=== PATIENT | female | born 1935 | race Caucasian/White ===

== ENCOUNTER 2017-07-11 18:17 | Emergency (ER) | payer MEDICARE ==
[~2017-07-11] VITALS: Ht 162.6 cm; Wt 68.0 kg
[~2017-07-11 18:17] MED LIST: ARICEPT5 MG PO; ASPIRIN81 MG; B-12500 MCG; BENTYL10 MG; COUMADIN2 MG PO; CRANBERRY500 M1; DIGOXIN125 MCG PO; DILTIAZEM HCL60 MG PO; HYDROCODON-ACE1 EA11; IRON325 M1; LEVOTHROID100 MCG; LIPITOR40 MG; METOPROLOL TART50 MG PO; NIFEDICAL XL30 MG; PRILOSEC20 MG; SERTRALINE HCL100 MG; TAMBOCOR100 MG; VITAMIN C1000 M2; VITAMIN D1000 UNIT; VITAMIN E1000 UNI1; XANAX XR0.5 MG; ZETIA10 MG
[2017-07-11] MEDS ORDERED: HYDROCODONE/APAP 5MG-325MG TAB PO ONE (21:45)
--- NOTE | 2017-07-11 22:24 | Diagnostic Imaging Report ---
KNEE RIGHT THREE VIEWS Comparison: None Clinical history: Knee pain status post fall Findings: See impression Impression: 1. Transverse minimally displaced fracture of the patella. 2. Large joint effusion. 3. Severe lateral compartment osteoarthritis with [id number] apposition. Signed by: Dr Sana Freeman MD on 07/11/2017 10:21 PM
[2017-07-11] MEDS ORDERED: TYLENOL WITH C1 EACH PO (22:28)
== END 2017-07-11 22:46 | disposition home or self-care (01) ==
LOC: ER 18:17
DX: S82.031A Displaced transverse fracture of right patella, initial encounter for closed fracture (principal); M25.461 Effusion, right knee; M25.361 Other instability, right knee; W18.09XA Striking against other object with subsequent fall, initial encounter; Y93.01 Activity, walking, marching and hiking; Y92.481 Parking lot as the place of occurrence of the external cause
CPT/HCPCS: 99284

== ENCOUNTER 2020-06-21 10:28 | Emergency (ER) | payer MEDICARE ==
[~2020-06-21] VITALS: Ht 154.9 cm; Wt 57.2 kg
[~2020-06-21 10:28] MED LIST changes: +TYLENOL WITH C1 EACH PO
[2020-06-21] MEDS ORDERED: SPIRONOLACTONE25 MG PO (10:56)
[2020-06-21] MEDS ORDERED: PREDNISONE 20 MG TAB PO ONE (11:30)
[2020-06-21] MEDS ORDERED: PREDNISONE 20 MG TAB ONE (11:40)
[2020-06-21] MEDS ORDERED: PREDNISONE20 MG PO ×2 (11:46→12:09)
[2020-06-21 12:22] VITALS: BP 120/70
== END 2020-06-21 12:16 | disposition home or self-care (01) ==
LOC: FSED 10:38
DX: M25.532 Pain in left wrist (principal); M65.88 Other synovitis and tenosynovitis, other site; I48.91 Unspecified atrial fibrillation; I10 Essential (primary) hypertension; I50.9 Heart failure, unspecified; K21.9 Gastro-esophageal reflux disease without esophagitis; Z85.3 Personal history of malignant neoplasm of breast; Z85.42 Personal history of malignant neoplasm of other parts of uterus; Z95.810 Presence of automatic (implantable) cardiac defibrillator
CPT/HCPCS: 73110; 99283; J7512

== ENCOUNTER 2021-06-03 20:03 | Inpatient (IN) | payer MEDICARE ==
[~2021-06-03] VITALS: Ht 160 cm; Wt 73.0 kg
[~2021-06-03 20:03] MED LIST changes: +PREDNISONE20 MG PO; +SPIRONOLACTONE25 MG PO
[2021-06-03 20:54] LABS: BASOPHILS % 0.3 % (0.0-1.0); EOSINOPHILS # (AUTO) 0.1 (0.0-0.4); EOSINOPHILS % 0.4 % (0.0-6.0); HEMOGLOBIN 11.4 g/dL (12.0-16.0); LYMPHOCYTES % 8.8 % (18.0-39.1); MEAN CORPUSCULAR HEMOGLOBIN 27.7 pg (28-32); MEAN CORPUSCULAR HGB CONC 31.7 g/dL (31-35); MEAN CORPUSCULAR VOLUME 87.4 fL (81-99); MONOCYTES # (AUTO) 1.2 (0.2-0.8); MONOCYTES % 9.7 % (4.4-11.3); NEUTROPHILS # (AUTO) 9.5 (2.1-6.9); NEUTROPHILS % 80.3 % (38.7-80.0); PLATELET COUNT 338 x10e3/uL (140-360); RED BLOOD COUNT 4.12 x10e6/uL (3.6-5.1); RED CELL DISTRIBUTION WIDTH 15.2 % (11.7-14.4)
[2021-06-03 21:00] LABS: CLARITY,URINE SL CLOUDY (CLEAR); COLOR,URINE STRAW (YELLOW); KETONES,URINE TRACE (NEGATIVE); LEUKOCYTE ESTERASE ,URINE SMALL (NEGATIVE); NITRITE,URINE NEGATIVE (NEGATIVE); PROTEIN,URINE DIPSTICK TRACE (NEGATIVE); URINE UROBILINOGEN 0.2 mg/dL (0.2 - 1)
[2021-06-03 21:14] LABS: ALBUMIN 3.2 g/dL (3.5-5.0); ALBUMIN/GLOBULIN RATIO 0.8 (0.8-2.0); CALCIUM 9.2 mg/dL (8.4-10.2); CREATININE, SERUM 0.9 mg/dL (0.57-1.11)
[2021-06-03 21:18] LABS: AMORPHOUS SEDIMENT,URINE MODERATE (FEW); BACTERIA,URINE FEW /HPF; HYALINE CASTS 0-1 (0-1); WBC,URINE (MAN) 0-5 /HPF (0-5)
[2021-06-03] MEDS ORDERED: SODIUM CHLORIDE 0.9% 50ML 50 ML ONE ×2 (21:39→23:47)
[2021-06-03] MEDS ORDERED: IOPAMIDOL 370 MG/ML 200 ML INFUS..BTL INJ ONE (21:39)
[2021-06-03] MEDS ORDERED: PIPERACILLIN/TAZOBACTAM 3.375 GM VIAL ONE (23:47)
[2021-06-04] VITALS (7 sets, daily range): BP systolic 104–118; BP diastolic 62–77
[2021-06-04] MEDS ORDERED: PIPER-TAZ 3.375 GM 50 ML IV ONE
[2021-06-04] MEDS: SODIUM CHLORIDE 0.9% 1000ML 1,000 ML IV SCH ×2 (00:10→08:53)
[2021-06-04] MEDS: ONDANSETRON HCL INJ 2MG/ML 2ML 2 MG/ML VIAL IV PRN ×5 (04:25→23:52)
[2021-06-04] MEDS ORDERED: METOPROLOL TARTRATE INJ 1 MG/ML VIAL IV STA (05:10)
[2021-06-04] MEDS ORDERED: DIGOXIN INJ 0.25 MG/ML 2 ML AMP IV STA (05:10)
[2021-06-04] MEDS ORDERED: DILTIAZEM HCL 5 MG/ML 5 ML VIAL IV STA (05:10)
[2021-06-04 05:21] LABS: CREATINE KINASE MB 3.3 ng/mL (0-5.0)
[2021-06-04 05:51] LABS: BASOPHILS % 0.3 % (0.0-1.0); EOSINOPHILS # (AUTO) 0.1 (0.0-0.4); EOSINOPHILS % 0.5 % (0.0-6.0); HEMATOCRIT 34.5 % (34.2-44.1); HEMOGLOBIN 10.8 g/dL (12.0-16.0); LYMPHOCYTES % 8.8 % (18.0-39.1); MEAN CORPUSCULAR HEMOGLOBIN 27.3 pg (28-32); MEAN CORPUSCULAR HGB CONC 31.3 g/dL (31-35); MEAN CORPUSCULAR VOLUME 87.1 fL (81-99); MONOCYTES # (AUTO) 1.2 (0.2-0.8); NEUTROPHILS # (AUTO) 8.6 (2.1-6.9); NEUTROPHILS % 79.1 % (38.7-80.0); PLATELET COUNT 309 x10e3/uL (140-360); RED BLOOD COUNT 3.96 x10e6/uL (3.6-5.1); RED CELL DISTRIBUTION WIDTH 15.2 % (11.7-14.4)
[2021-06-04] MEDS ORDERED: PIPERACILLIN/TAZOBACTAM 3.375 GM in SODIUM CHLORIDE 0.9% 50ML 50 ML IV ONE (06:00)
[2021-06-04 06:24] LABS: ALBUMIN/GLOBULIN RATIO 0.8 (0.8-2.0); ANION GAP 15.4 mmol/L (8-16); CALCIUM 8.7 mg/dL (8.4-10.2); CREATININE, SERUM 0.75 mg/dL (0.57-1.11); POTASSIUM 4.4 mmol/L (3.5-5.1)
[2021-06-04 06:46] LABS: CREATINE KINASE MB 3.2 ng/mL (0-5.0)
[2021-06-04] MEDS: LACTATED RINGER'S 1,000 ML INJ SCH ×2 (10:20→21:15)
[2021-06-04] MEDS: PIPERACILLIN/TAZOBACTAM 3.375 GM in SODIUM CHLORIDE 0.9% 50ML 50 ML IV SCH ×2 (11:17→18:48)
[2021-06-04] MEDS ORDERED: PIPERACILLIN/TAZOBACTAM 3.375 GM in SODIUM CHLORIDE 0.9% 50ML 50 ML IV SCH (12:00)
[2021-06-04 13:47] LABS: INR 1.32; PROTHROMBIN TIME 17.4 seconds (11.9-14.5)
[2021-06-04] MEDS ORDERED: ACETAMINOPHEN 650 MG SUPP PR ONE (18:15)
[2021-06-04] MEDS ORDERED: DIGOXIN INJ 0.25 MG/ML 2 ML AMP IV ONE (18:15)
[2021-06-04] MEDS: FAMOTIDINE 20 MG/2 ML VIAL IV SCH (18:19)
[2021-06-04] MEDS: Morphine 4mg Syringe 4 MG/ML INJ IV PRN ×2 (19:43→23:52)
[2021-06-04] MEDS: CLINDAMYCIN 600MG / 50ML 50 ML IV SCH (20:20)
[2021-06-05] VITALS (13 sets, daily range): BP systolic 93–123; BP diastolic 48–82
[2021-06-05] MEDS: PIPERACILLIN/TAZOBACTAM 3.375 GM in SODIUM CHLORIDE 0.9% 50ML 50 ML IV SCH ×3 (02:51→22:45)
[2021-06-05] MEDS: CLINDAMYCIN 600MG / 50ML 50 ML IV SCH ×3 (05:20→23:00)
[2021-06-05 06:29] LABS: BASOPHILS % 0.3 % (0.0-1.0); EOSINOPHILS % 0.1 % (0.0-6.0); HEMATOCRIT 34.6 % (34.2-44.1); HEMOGLOBIN 10.6 g/dL (12.0-16.0); LYMPHOCYTES # (AUTO) 0.9 (1.0-3.2); LYMPHOCYTES % 9.6 % (18.0-39.1); MEAN CORPUSCULAR HEMOGLOBIN 27.3 pg (28-32); MEAN CORPUSCULAR HGB CONC 30.6 g/dL (31-35); MEAN CORPUSCULAR VOLUME 89.2 fL (81-99); MONOCYTES # (AUTO) 1.2 (0.2-0.8); MONOCYTES % 12.6 % (4.4-11.3); NEUTROPHILS # (AUTO) 7.6 (2.1-6.9); PLATELET COUNT 282 x10e3/uL (140-360); RED BLOOD COUNT 3.88 x10e6/uL (3.6-5.1); RED CELL DISTRIBUTION WIDTH 15.5 % (11.7-14.4)
[2021-06-05] MEDS: LACTATED RINGER'S 1,000 ML INJ SCH ×3 (06:31→22:45)
[2021-06-05 06:36] LABS: ANION GAP 16.5 mmol/L (8-16); CALCIUM 8.7 mg/dL (8.4-10.2); CHOL/HDL RATIO 5.4 (3.0-3.6); CREATININE, SERUM 0.84 mg/dL (0.57-1.11); POTASSIUM 4.5 mmol/L (3.5-5.1)
[2021-06-05] MEDS: FAMOTIDINE 20 MG/2 ML VIAL IV SCH (08:31)
[2021-06-05] MEDS: METOPROLOL TARTRATE INJ 1 MG/ML VIAL IV SCH ×3 (11:45→19:10)
[2021-06-05] MEDS ORDERED: FENTANYL CITRATE/PF 100MCG/2 ML INJ ONE (13:00)
[2021-06-05] MEDS ORDERED: MIDAZOLAM HCL 2 MG/2 ML VIAL ONE (13:00)
[2021-06-05] MEDS ORDERED: HEPARIN SOD/SOD CHLORIDE 1,000 ML ONE (13:23)
[2021-06-05] MEDS ORDERED: NOREPINEPHRINE ONE (13:42)
[2021-06-05] MEDS ORDERED: SODIUM CHLORIDE 0.9% 250ML 0 ML ONE (13:43)
[2021-06-05] MEDS ORDERED: LIDOCAINE HCL 2% LOCAL INJ 5 ML SDV VIAL INJ ONE (13:58)
[2021-06-05] MEDS ORDERED: GLYCOPYRROLATE INJ 0.2 MG/ML VIAL ONE (13:58)
[2021-06-05] MEDS ORDERED: METOPROLOL TARTRATE INJ 1 MG/ML VIAL ONE (13:58)
[2021-06-05] MEDS ORDERED: DEXAMETHASONE SOD PHOS INJ 4 MG/ML SDV ONE (13:58)
[2021-06-05] MEDS ORDERED: SEVOFLURANE INHAL SOLN 250 ML PEN BTL ONE (13:58)
[2021-06-05] MEDS ORDERED: ONDANSETRON HCL INJ 2MG/ML 2ML 2 MG/ML VIAL ONE (13:58)
[2021-06-05] MEDS ORDERED: ROCURONIUM BROMIDE 10 MG/ML 5ML VIAL IV ONE (13:58)
[2021-06-05] MEDS ORDERED: PHENYLEPHRINE HCL 1% 10 MG/ML VIAL ONE (13:58)
[2021-06-05] MEDS ORDERED: POVIDONE IODINE 0.05% 0.05 % ML PO ONE (13:58)
[2021-06-05] MEDS ORDERED: NEOSTIGMINE 1 MG/ML 10ML VIAL ONE (13:58)
[2021-06-05] MEDS ORDERED: PROPOFOL IV EMULSION 10 MG/ML 20 ML VIAL ONE (13:58)
[2021-06-05] MEDS ORDERED: ESMOLOL HCL 100MG/10ML 10 MG/ML VIAL ONE (13:58)
[2021-06-05] MEDS ORDERED: ACETAMINOPHEN 1000 MG/100 ML 100 ML IV ONE (15:43)
[2021-06-05] MEDS ORDERED: HYDROMORPHONE 1MG/1ML INJ ONE (15:43)
[2021-06-05] MEDS ORDERED: SUGAMMADEX SODIUM 200 MG/2 ML VIAL IV ONE (16:30)
[2021-06-05] MEDS ORDERED: ACETAMINOPHEN 1000 MG/100 ML IV PRN ×4 (16:45→18:00)
[2021-06-05] MEDS ORDERED: HYDROMORPHONE 1MG/1ML INJ IV PRN ×3 (16:45)
[2021-06-05] MEDS: HYDROMORPHONE 1MG/1ML INJ IV PRN (19:10)
[2021-06-06] VITALS (20 sets, daily range): BP systolic 90–107; BP diastolic 45–57
[2021-06-06] MEDS: METOPROLOL TARTRATE INJ 1 MG/ML VIAL IV SCH ×4 (00:05→18:24)
[2021-06-06] MEDS: HYDROMORPHONE 1MG/1ML INJ IV PRN ×4 (00:05→21:05)
[2021-06-06] MEDS: PIPERACILLIN/TAZOBACTAM 3.375 GM in SODIUM CHLORIDE 0.9% 50ML 50 ML IV SCH ×3 (04:38→19:00)
[2021-06-06] MEDS: LACTATED RINGER'S 1,000 ML INJ SCH ×3 (04:38→20:44)
[2021-06-06] MEDS: CLINDAMYCIN 600MG / 50ML 50 ML IV SCH ×3 (05:05→21:57)
[2021-06-06] MEDS: ONDANSETRON HCL INJ 2MG/ML 2ML 2 MG/ML VIAL IV PRN ×3 (06:10→21:05)
[2021-06-06 06:33] LABS: BASOPHILS # (AUTO) 0.1 (0.0-0.1); BASOPHILS % 0.3 % (0.0-1.0); HEMATOCRIT 33.3 % (34.2-44.1); HEMOGLOBIN 10.6 g/dL (12.0-16.0); LYMPHOCYTES # (AUTO) 0.8 (1.0-3.2); LYMPHOCYTES % 4.2 % (18.0-39.1); MEAN CORPUSCULAR HEMOGLOBIN 27.6 pg (28-32); MEAN CORPUSCULAR HGB CONC 31.8 g/dL (31-35); MEAN CORPUSCULAR VOLUME 86.7 fL (81-99); MONOCYTES # (AUTO) 1.3 (0.2-0.8); MONOCYTES % 6.4 % (4.4-11.3); NEUTROPHILS # (AUTO) 17.6 (2.1-6.9); NEUTROPHILS % 88.4 % (38.7-80.0); PLATELET COUNT 363 x10e3/uL (140-360); RED BLOOD COUNT 3.84 x10e6/uL (3.6-5.1); RED CELL DISTRIBUTION WIDTH 15.8 % (11.7-14.4)
[2021-06-06 08:23] LABS: ALBUMIN 2.4 g/dL (3.5-5.0); ALBUMIN/GLOBULIN RATIO 0.7 (0.8-2.0); ANION GAP 17.9 mmol/L (8-16); CALCIUM 8.6 mg/dL (8.4-10.2); CREATININE, SERUM 0.99 mg/dL (0.57-1.11); POTASSIUM 4.9 mmol/L (3.5-5.1)
[2021-06-07] VITALS (18 sets, daily range): BP systolic 75–158; BP diastolic 47–95
[2021-06-07] MEDS: PIPERACILLIN/TAZOBACTAM 3.375 GM in SODIUM CHLORIDE 0.9% 50ML 50 ML IV SCH ×3 (02:14→20:21)
[2021-06-07] MEDS: ONDANSETRON HCL INJ 2MG/ML 2ML 2 MG/ML VIAL IV PRN ×2 (04:47→21:56)
[2021-06-07] MEDS: LACTATED RINGER'S 1,000 ML INJ SCH (05:00)
[2021-06-07] MEDS: CLINDAMYCIN 600MG / 50ML 50 ML IV SCH ×3 (05:12→21:18)
[2021-06-07] MEDS: METOPROLOL TARTRATE INJ 1 MG/ML VIAL IV SCH ×2 (05:16)
[2021-06-07] MEDS ORDERED: LACTATED RINGER'S 500 ML IV ONE ×2 (05:30→06:10)
[2021-06-07 05:56] LABS: BASOPHILS % 0.2 % (0.0-1.0); HEMATOCRIT 33.4 % (34.2-44.1); HEMOGLOBIN 10.4 g/dL (12.0-16.0); LYMPHOCYTES # (AUTO) 0.9 (1.0-3.2); LYMPHOCYTES % 5.7 % (18.0-39.1); MEAN CORPUSCULAR HEMOGLOBIN 27.3 pg (28-32); MEAN CORPUSCULAR HGB CONC 31.1 g/dL (31-35); MEAN CORPUSCULAR VOLUME 87.7 fL (81-99); MONOCYTES # (AUTO) 1.5 (0.2-0.8); MONOCYTES % 9.3 % (4.4-11.3); NEUTROPHILS # (AUTO) 13.4 (2.1-6.9); NEUTROPHILS % 83.6 % (38.7-80.0); PLATELET COUNT 424 x10e3/uL (140-360); RED BLOOD COUNT 3.81 x10e6/uL (3.6-5.1); RED CELL DISTRIBUTION WIDTH 16.4 % (11.7-14.4)
[2021-06-07 06:16] LABS: ALBUMIN 2.4 g/dL (3.5-5.0); ALBUMIN/GLOBULIN RATIO 0.7 (0.8-2.0); ANION GAP 21.2 mmol/L (8-16); CALCIUM 8.4 mg/dL (8.4-10.2); CREATININE, SERUM 2.1 mg/dL (0.57-1.11); POTASSIUM 5.2 mmol/L (3.5-5.1)
[2021-06-07] MEDS ORDERED: DEXTROSE 5%/0.9% SOD CHL 1,000 ML IV SCH (07:15)
[2021-06-07] MEDS ORDERED: ALBUMIN 25% 12.5GM 0.25 GM/ML BTL IV ONE (08:45)
[2021-06-07] MEDS ORDERED: ALBUMIN 25% 12.5GM 50ML 50 ML IV ONE (08:56)
[2021-06-07] MEDS ORDERED: CLOPIDOGREL BISULFATE 75 MG TAB PO NR (10:00)
[2021-06-07] MEDS ORDERED: ASPIRIN 325 MG TAB PO NR (10:00)
[2021-06-07] MEDS: SODIUM BICARBONATE 8.4% 150 ML in STERILE WATER IV SOLN 1,000 ML IV SCH ×2 (10:10→20:21)
[2021-06-07] MEDS ORDERED: LIDOCAINE HCL 2% LOCAL 20 ML VIAL ONE (10:36)
[2021-06-07] MEDS ORDERED: HEPARIN SOD/SOD CHLORIDE 2,000 ML ONE (10:37)
[2021-06-07] MEDS ORDERED: IOPAMIDOL 370 MG/ML 200 ML INFUS..BTL INJ ONE ×2 (10:37→11:49)
[2021-06-07] MEDS ORDERED: HEPARIN SOD (PORCINE) 1000 UNIT/ML 30ML ONE (10:38)
[2021-06-07] MEDS ORDERED: SODIUM CHLORIDE 0.9% 1000ML 1,000 ML ONE ×2 (10:38→11:10)
[2021-06-07] MEDS ORDERED: NITROGLYCERIN/D5W 200 MCG/ML 250 ML ONE (10:38)
[2021-06-07] MEDS ORDERED: FENTANYL CITRATE/PF 100MCG/2 ML INJ ONE (10:38)
[2021-06-07] MEDS ORDERED: MIDAZOLAM HCL 2 MG/2 ML VIAL ONE (10:38)
[2021-06-07] MEDS ORDERED: BIVALRIUDIN 250 MG/VIAL VIAL IV ONE (11:12)
[2021-06-07] MEDS ORDERED: SODIUM CHLORIDE 0.9% 50ML 50 ML ONE (11:12)
[2021-06-07] MEDS: VASOPRESSIN 60 UNIT in DEXTROSE 5% 50ML 57 ML IV SCH (20:21)
[2021-06-07 20:26] LABS: ALANINE AMINOTRANSFERASE 2518 IU/L (0-55); ALBUMIN 2.2 g/dL (3.5-5.0); ALBUMIN/GLOBULIN RATIO 0.8 (0.8-2.0); ALKALINE PHOSPHATASE 59 IU/L (40-150); ANION GAP 18.6 mmol/L (8-16); BLOOD UREA NITROGEN 54 mg/dL (7-26); BUN/CREATININE RATIO 22 (6-25); CALCIUM 7.7 mg/dL (8.4-10.2); CARBON DIOXIDE 21 mmol/L (22-29); CHLORIDE 104 mmol/L (98-107); CREATININE, SERUM 2.42 mg/dL (0.57-1.11); EST GLOMERULAR FILTRATION RATE 19 ML/MIN (60-); GLUCOSE 153 mg/dL (74-118); POTASSIUM 4.6 mmol/L (3.5-5.1); SODIUM 139 mmol/L (136-145)
[2021-06-07] MEDS ORDERED: ATORVASTATIN 20 MG TAB PO SCH (21:00)
[2021-06-08] VITALS (25 sets, daily range): BP systolic 87–166; BP diastolic 34–94
[2021-06-08] MEDS: ONDANSETRON HCL INJ 2MG/ML 2ML 2 MG/ML VIAL IV PRN (02:50)
[2021-06-08 06:11] LABS: BASOPHILS % 0.1 % (0.0-1.0); HEMATOCRIT 28.4 % (34.2-44.1); HEMOGLOBIN 8.9 g/dL (12.0-16.0); LYMPHOCYTES # (AUTO) 0.8 (1.0-3.2); LYMPHOCYTES % 5.2 % (18.0-39.1); MEAN CORPUSCULAR HEMOGLOBIN 27.4 pg (28-32); MEAN CORPUSCULAR HGB CONC 31.3 g/dL (31-35); MEAN CORPUSCULAR VOLUME 87.4 fL (81-99); MONOCYTES # (AUTO) 0.8 (0.2-0.8); MONOCYTES % 5.9 % (4.4-11.3); NEUTROPHILS # (AUTO) 12.6 (2.1-6.9); NEUTROPHILS % 87.5 % (38.7-80.0); PLATELET COUNT 277 x10e3/uL (140-360); RED BLOOD COUNT 3.25 x10e6/uL (3.6-5.1); RED CELL DISTRIBUTION WIDTH 16.7 % (11.7-14.4)
[2021-06-08] MEDS: CLINDAMYCIN 600MG / 50ML 50 ML IV SCH ×3 (06:16→22:00)
[2021-06-08 06:32] LABS: ALBUMIN 2.3 g/dL (3.5-5.0); ALBUMIN/GLOBULIN RATIO 0.8 (0.8-2.0); ANION GAP 20.4 mmol/L (8-16); CALCIUM 7.3 mg/dL (8.4-10.2); CREATININE, SERUM 2.63 mg/dL (0.57-1.11); POTASSIUM 4.4 mmol/L (3.5-5.1)
[2021-06-08] MEDS ORDERED: PROMETHAZINE 12.5MG/ NACL 0.9% 12.5 MG/50 ML BAG IV ONE (06:50)
[2021-06-08 08:37] LABS: PROTHROMBIN TIME 93.8 seconds (11.9-14.5)
[2021-06-08 08:38] LABS: INR 10.98
[2021-06-08] MEDS ORDERED: CLOPIDOGREL BISULFATE 75 MG TAB PO SCH (09:00)
[2021-06-08] MEDS ORDERED: ASPIRIN 81 MG ENTERIC COATED PO SCH (09:00)
[2021-06-08] MEDS ORDERED: FUROSEMIDE INJ 10 MG/ML 4 ML VIAL IV SCH (09:00)
[2021-06-08] MEDS ORDERED: METOPROLOL TARTRATE INJ 1 MG/ML VIAL IV PRN (10:30)
[2021-06-08] MEDS ORDERED: DIGOXIN INJ 0.25 MG/ML 2 ML AMP IV ONE (10:45)
[2021-06-08] MEDS: PIPERACILLIN/TAZOBACTAM 3.375 GM in SODIUM CHLORIDE 0.9% 50ML 50 ML IV SCH ×2 (11:01→20:17)
[2021-06-08] MEDS: METOPROLOL TARTRATE INJ 1 MG/ML VIAL IV PRN ×2 (11:49→14:45)
[2021-06-08] MEDS ORDERED: BUMETANIDE INJ 0.25MG/ML 4ML VIAL IV ONE (14:45)
[2021-06-08] MEDS: BUMETANIDE 10 MG in SODIUM CHLORIDE 0.9% 100 ML 60 ML IV SCH (15:13)
[2021-06-08] MEDS ORDERED: ZIPRASIDONE 20 MG VIAL IM STA (16:27)
[2021-06-08] MEDS ORDERED: ALBUMIN 25% 25GM 100ML 0.25 GM/ML BTL IV ONE (17:30)
[2021-06-08] MEDS: VASOPRESSIN 60 UNIT in DEXTROSE 5% 50ML 57 ML IV SCH (18:45)
[2021-06-08] MEDS: SODIUM BICARBONATE 8.4% 150 ML in STERILE WATER IV SOLN 1,000 ML IV SCH (19:12)
[2021-06-08] MEDS ORDERED: ATORVASTATIN 40 MG TAB PO SCH (21:00)
[2021-06-09] MEDS: BUMETANIDE 10 MG in SODIUM CHLORIDE 0.9% 100 ML 60 ML IV SCH (01:30)
[2021-06-09] MEDS: CLINDAMYCIN 600MG / 50ML 50 ML IV SCH (05:40)
[2021-06-09 08:31] VITALS: BP 101/43
[2021-06-09 09:00] VITALS: BP 101/43
[2021-06-09] MEDS: HYDROMORPHONE 1MG/1ML INJ IV PRN ×3 (09:30→18:00)
[2021-06-09] MEDS: LORAZEPAM INJ 2 MG/ML VIAL IV PRN (18:00)
[2021-06-10] MEDS: HYDROMORPHONE 1MG/1ML INJ IV PRN ×4 (02:57→21:30)
[2021-06-10] MEDS: LORAZEPAM INJ 2 MG/ML VIAL IV PRN ×4 (05:37→14:42)
[2021-06-10 09:00] VITALS: BP 101/43
[2021-06-10] MEDS ORDERED: SODIUM CHLORIDE 0.9% 1000ML 1,000 ML ONE (10:39)
[2021-06-10] MEDS ORDERED: PHYTONADIONE 10 MG/ML AMP SQ STA (10:43)
[2021-06-10] MEDS ORDERED: LORAZEPAM INJ 2 MG/ML VIAL IV STA (10:45)
[2021-06-10] MEDS ORDERED: SODIUM CHLORIDE 0.9% 1000ML 1,000 ML IV SCH (10:45)
[2021-06-10] MEDS ORDERED: PHYTONADIONE 10MG/ML 1 ML ONE ×2 (10:59→11:06)
[2021-06-10 11:59] VITALS: BP 120/68
[2021-06-10] MEDS: PIPERACILLIN/TAZOBACTAM 3.375 GM in SODIUM CHLORIDE 0.9% 50ML 50 ML IV SCH ×2 (14:00→20:57)
[2021-06-10 14:36] LABS: BASOPHILS % 0.2 % (0.0-1.0); EOSINOPHILS % 0.1 % (0.0-6.0); HEMOGLOBIN 8.9 g/dL (12.0-16.0); LYMPHOCYTES # (AUTO) 0.9 (1.0-3.2); LYMPHOCYTES % 5.5 % (18.0-39.1); MEAN CORPUSCULAR HEMOGLOBIN 27.3 pg (28-32); MEAN CORPUSCULAR HGB CONC 30.7 g/dL (31-35); MONOCYTES # (AUTO) 1.7 (0.2-0.8); MONOCYTES % 10.4 % (4.4-11.3); NEUTROPHILS # (AUTO) 13.7 (2.1-6.9); NEUTROPHILS % 81.8 % (38.7-80.0); PLATELET COUNT 220 x10e3/uL (140-360); RED BLOOD COUNT 3.26 x10e6/uL (3.6-5.1); RED CELL DISTRIBUTION WIDTH 17.2 % (11.7-14.4)
[2021-06-10 16:22] VITALS: BP 109/47
[2021-06-10 20:19] VITALS: BP 119/79
[2021-06-10 21:00] VITALS: BP 119/79
[2021-06-11] VITALS (9 sets, daily range): BP systolic 100–130; BP diastolic 63–89
[2021-06-11] MEDS: PIPERACILLIN/TAZOBACTAM 3.375 GM in SODIUM CHLORIDE 0.9% 50ML 50 ML IV SCH (05:58)
[2021-06-11 06:13] LABS: BASOPHILS % 0.1 % (0.0-1.0); EOSINOPHILS # (AUTO) 0.2 (0.0-0.4); EOSINOPHILS % 1.5 % (0.0-6.0); HEMATOCRIT 28.7 % (34.2-44.1); HEMOGLOBIN 9.2 g/dL (12.0-16.0); LYMPHOCYTES # (AUTO) 0.6 (1.0-3.2); MEAN CORPUSCULAR HGB CONC 32.1 g/dL (31-35); MEAN CORPUSCULAR VOLUME 87.2 fL (81-99); MONOCYTES # (AUTO) 1.2 (0.2-0.8); NEUTROPHILS # (AUTO) 11.5 (2.1-6.9); NEUTROPHILS % 83.9 % (38.7-80.0); PLATELET COUNT 256 x10e3/uL (140-360); RED BLOOD COUNT 3.29 x10e6/uL (3.6-5.1); RED CELL DISTRIBUTION WIDTH 17.2 % (11.7-14.4)
[2021-06-11 06:23] LABS: ALBUMIN 2.6 g/dL (3.5-5.0); ALBUMIN/GLOBULIN RATIO 0.8 (0.8-2.0); ANION GAP 17.6 mmol/L (8-16); CALCIUM 7.4 mg/dL (8.4-10.2); CREATININE, SERUM 3.64 mg/dL (0.57-1.11); POTASSIUM 3.6 mmol/L (3.5-5.1)
[2021-06-11 07:33] LABS: INR 1.41; PROTHROMBIN TIME 18.3 seconds (11.9-14.5)
[2021-06-11] MEDS ORDERED: DEXTROSE 5%/0.225% SOD CHL 1,000 ML IV SCH (11:45)
[2021-06-11] MEDS: DEXTROSE 5%/0.225% SOD CHL 1,000 ML IV SCH (12:47)
[2021-06-11] MEDS: PIPERACILLIN/TAZOBACTAM 2.25 GM in SODIUM CHLORIDE 0.9% 50ML 50 ML IV SCH ×2 (14:00→20:54)
[2021-06-12] VITALS (7 sets, daily range): BP systolic 105–141; BP diastolic 67–81
[2021-06-12] MEDS: DEXTROSE 5%/0.225% SOD CHL 1,000 ML IV SCH (01:02)
[2021-06-12] MEDS: PIPERACILLIN/TAZOBACTAM 2.25 GM in SODIUM CHLORIDE 0.9% 50ML 50 ML IV SCH ×3 (05:16→21:40)
[2021-06-12 06:21] LABS: BASOPHILS % 0.2 % (0.0-1.0); HEMATOCRIT 30.5 % (34.2-44.1); HEMOGLOBIN 9.9 g/dL (12.0-16.0); LYMPHOCYTES # (AUTO) 0.4 (1.0-3.2); LYMPHOCYTES % 2.4 % (18.0-39.1); MEAN CORPUSCULAR HEMOGLOBIN 28.3 pg (28-32); MEAN CORPUSCULAR HGB CONC 32.5 g/dL (31-35); MEAN CORPUSCULAR VOLUME 87.1 fL (81-99); MONOCYTES # (AUTO) 1.2 (0.2-0.8); MONOCYTES % 8.3 % (4.4-11.3); NEUTROPHILS # (AUTO) 12.8 (2.1-6.9); NEUTROPHILS % 87.4 % (38.7-80.0); PLATELET COUNT 257 x10e3/uL (140-360); RED CELL DISTRIBUTION WIDTH 18.3 % (11.7-14.4)
[2021-06-12 06:58] LABS: INR 1.32; PROTHROMBIN TIME 17.3 seconds (11.9-14.5)
[2021-06-12 07:02] LABS: ALBUMIN 2.7 g/dL (3.5-5.0); ALBUMIN/GLOBULIN RATIO 0.8 (0.8-2.0); CALCIUM 7.3 mg/dL (8.4-10.2); CREATININE, SERUM 2.91 mg/dL (0.57-1.11)
[2021-06-12] MEDS ORDERED: D5.45%NS/KCL 20MEQ 1,000 ML IV SCH (15:00)
[2021-06-12] MEDS ORDERED: POTASSIUM CHLORIDE 20MEQ/100ML 100 ML IV STA (15:12)
[2021-06-12] MEDS: DEXTROSE 5% 1,000 ML IV SCH ×2 (15:15→23:04)
[2021-06-12] MEDS ORDERED: DEXTROSE 5% 1,000 ML IV ONE (15:15)
[2021-06-12] MEDS ORDERED: POTASSIUM CHLORIDE 20MEQ/100ML 200 ML IV ONE (15:45)
[2021-06-12] MEDS: ENOXAPARIN 30 MG/0.3 ML SYR SC SCH (16:42)
[2021-06-12] MEDS ORDERED: ENOXAPARIN SOD INJ 40 MG/0.4 ML SYR SC SCH (17:00)
[2021-06-13] VITALS (10 sets, daily range): BP systolic 118–147; BP diastolic 72–102
[2021-06-13] MEDS: PIPERACILLIN/TAZOBACTAM 2.25 GM in SODIUM CHLORIDE 0.9% 50ML 50 ML IV SCH ×3 (05:37→21:21)
[2021-06-13] MEDS: DEXTROSE 5% 1,000 ML IV SCH ×2 (06:35→14:30)
[2021-06-13 06:52] LABS: BASOPHILS % 0.2 % (0.0-1.0); HEMATOCRIT 33.5 % (34.2-44.1); HEMOGLOBIN 10.1 g/dL (12.0-16.0); LYMPHOCYTES # (AUTO) 0.4 (1.0-3.2); LYMPHOCYTES % 2.6 % (18.0-39.1); MEAN CORPUSCULAR HEMOGLOBIN 27.6 pg (28-32); MEAN CORPUSCULAR HGB CONC 30.1 g/dL (31-35); MEAN CORPUSCULAR VOLUME 91.5 fL (81-99); MONOCYTES # (AUTO) 1.5 (0.2-0.8); MONOCYTES % 10.1 % (4.4-11.3); NEUTROPHILS % 86.2 % (38.7-80.0); PLATELET COUNT 268 x10e3/uL (140-360); RED BLOOD COUNT 3.66 x10e6/uL (3.6-5.1); RED CELL DISTRIBUTION WIDTH 19.3 % (11.7-14.4)
[2021-06-13 07:26] LABS: ALBUMIN 2.8 g/dL (3.5-5.0); ALBUMIN/GLOBULIN RATIO 0.8 (0.8-2.0); ANION GAP 16.2 mmol/L (8-16); CALCIUM 7.6 mg/dL (8.4-10.2); CREATININE, SERUM 2.22 mg/dL (0.57-1.11); POTASSIUM 3.2 mmol/L (3.5-5.1)
[2021-06-13] MEDS ORDERED: POTASSIUM CHLORIDE 20MEQ/100ML 100 ML IV ONE ×3 (09:30→11:00)
[2021-06-13] MEDS ORDERED: BUMETANIDE INJ 0.25MG/ML 4ML VIAL IV ONE (15:00)
[2021-06-13] MEDS: ENOXAPARIN 30 MG/0.3 ML SYR SC SCH (16:58)
[2021-06-13] MEDS ORDERED: Morphine 2mg Syringe 2 MG/ML SYR IV PRN (17:00)
[2021-06-13] MEDS: METOPROLOL TARTRATE INJ 1 MG/ML VIAL IV PRN (20:36)
[2021-06-14] VITALS (9 sets, daily range): BP systolic 116–152; BP diastolic 85–102
[2021-06-14] MEDS: METOPROLOL TARTRATE INJ 1 MG/ML VIAL IV PRN ×2 (00:09→21:45)
[2021-06-14] MEDS: PIPERACILLIN/TAZOBACTAM 2.25 GM in SODIUM CHLORIDE 0.9% 50ML 50 ML IV SCH ×3 (05:44→22:55)
[2021-06-14] MEDS: DEXTROSE 5% 1,000 ML IV SCH ×2 (05:44→16:44)
[2021-06-14] MEDS ORDERED: CLOPIDOGREL BISULFATE 75 MG TAB PO ONE (14:30)
[2021-06-14] MEDS ORDERED: BUMETANIDE INJ 0.25MG/ML 4ML VIAL IV ONE (15:00)
[2021-06-14 15:27] LABS: ALBUMIN 2.8 g/dL (3.5-5.0); ALBUMIN/GLOBULIN RATIO 0.8 (0.8-2.0); ANION GAP 14.3 mmol/L (8-16); CALCIUM 7.4 mg/dL (8.4-10.2); CREATININE, SERUM 2.14 mg/dL (0.57-1.11); POTASSIUM 3.3 mmol/L (3.5-5.1)
[2021-06-14] MEDS: METOPROLOL TARTRATE 25 MG TAB PO SCH (16:44)
[2021-06-14] MEDS: ENOXAPARIN 30 MG/0.3 ML SYR SC SCH (16:44)
[2021-06-14] MEDS ORDERED: MAGNESIUM SULFATE 2GM/50ML 50 ML IV ONE (17:30)
[2021-06-14] MEDS ORDERED: SODIUM CHLORIDE 0.9% 50ML 50 ML ONE (18:01)
[2021-06-14] MEDS ORDERED: POTASSIUM CHLORIDE 10MEQ/100ML 200 ML IV ONE (19:30)
[2021-06-15] VITALS (8 sets, daily range): BP systolic 101–136; BP diastolic 64–106
[2021-06-15] MEDS: DEXTROSE 5% 1,000 ML IV SCH ×2 (04:00→13:51)
[2021-06-15] MEDS: PIPERACILLIN/TAZOBACTAM 2.25 GM in SODIUM CHLORIDE 0.9% 50ML 50 ML IV SCH (05:54)
[2021-06-15 06:37] LABS: BASOPHILS % 0.1 % (0.0-1.0); HEMATOCRIT 34.2 % (34.2-44.1); HEMOGLOBIN 10.2 g/dL (12.0-16.0); LYMPHOCYTES # (AUTO) 0.4 (1.0-3.2); MEAN CORPUSCULAR HEMOGLOBIN 27.9 pg (28-32); MEAN CORPUSCULAR HGB CONC 29.8 g/dL (31-35); MEAN CORPUSCULAR VOLUME 93.7 fL (81-99); MONOCYTES # (AUTO) 1.2 (0.2-0.8); MONOCYTES % 6.5 % (4.4-11.3); NEUTROPHILS % 90.4 % (38.7-80.0); PLATELET COUNT 222 x10e3/uL (140-360); RED BLOOD COUNT 3.65 x10e6/uL (3.6-5.1); RED CELL DISTRIBUTION WIDTH 20.4 % (11.7-14.4)
[2021-06-15 07:04] LABS: MAGNESIUM 2.1 MG/DL (1.3-2.1); PHOSPHORUS 4.2 MG/DL (2.3-4.7)
[2021-06-15 07:07] LABS: ALBUMIN 2.6 g/dL (3.5-5.0); ALBUMIN/GLOBULIN RATIO 0.7 (0.8-2.0); ANION GAP 12.3 mmol/L (8-16); CALCIUM 7.2 mg/dL (8.4-10.2); CREATININE, SERUM 2.02 mg/dL (0.57-1.11); POTASSIUM 3.3 mmol/L (3.5-5.1)
[2021-06-15] MEDS: METOPROLOL TARTRATE 25 MG TAB PO SCH ×2 (08:55→18:19)
[2021-06-15] MEDS: CLOPIDOGREL BISULFATE 75 MG TAB PO SCH (08:55)
[2021-06-15] MEDS ORDERED: POTASSIUM CHLORIDE 20MEQ/100ML 200 ML IV ONE ×2 (12:45→15:30)
[2021-06-15] MEDS: BUMETANIDE INJ 0.25MG/ML 4ML VIAL IV SCH ×2 (13:51→20:32)
[2021-06-15] MEDS ORDERED: METRONIDAZOLE 500MG/NS 100ML 100 ML IV SCH (14:00)
[2021-06-15] MEDS: METRONIDAZOLE 500 MG TAB PO SCH ×2 (15:49→21:17)
[2021-06-15] MEDS: CEFEPIME 1 GM in SODIUM CHLORIDE 0.9% 50ML 50 ML IV SCH (15:49)
[2021-06-15] MEDS: ENOXAPARIN 30 MG/0.3 ML SYR SC SCH (18:20)
[2021-06-16] VITALS (7 sets, daily range): BP systolic 100–125; BP diastolic 63–91
[2021-06-16] MEDS: DEXTROSE 5% 1,000 ML IV SCH ×3 (00:40→22:08)
[2021-06-16 05:04] LABS: BASOPHILS % 0.2 % (0.0-1.0); EOSINOPHILS # (AUTO) 0.1 (0.0-0.4); EOSINOPHILS % 0.3 % (0.0-6.0); HEMATOCRIT 33.8 % (34.2-44.1); HEMOGLOBIN 10.4 g/dL (12.0-16.0); LYMPHOCYTES # (AUTO) 0.5 (1.0-3.2); LYMPHOCYTES % 2.6 % (18.0-39.1); MEAN CORPUSCULAR HEMOGLOBIN 28.1 pg (28-32); MEAN CORPUSCULAR HGB CONC 30.8 g/dL (31-35); MEAN CORPUSCULAR VOLUME 91.4 fL (81-99); MONOCYTES # (AUTO) 1.1 (0.2-0.8); MONOCYTES % 5.7 % (4.4-11.3); NEUTROPHILS % 90.3 % (38.7-80.0); PLATELET COUNT 206 x10e3/uL (140-360); RED CELL DISTRIBUTION WIDTH 20.4 % (11.7-14.4)
[2021-06-16 05:32] LABS: ALBUMIN 2.4 g/dL (3.5-5.0); ALBUMIN/GLOBULIN RATIO 0.7 (0.8-2.0); ANION GAP 15.8 mmol/L (8-16); CREATININE, SERUM 1.77 mg/dL (0.57-1.11)
[2021-06-16 05:39] LABS: CALCIUM 6.9 mg/dL (8.4-10.2); POTASSIUM 2.8 mmol/L (3.5-5.1)
[2021-06-16] MEDS: METRONIDAZOLE 500 MG TAB PO SCH ×3 (05:53→22:08)
[2021-06-16] MEDS: METOPROLOL TARTRATE 25 MG TAB PO SCH ×2 (09:00→18:27)
[2021-06-16] MEDS: CLOPIDOGREL BISULFATE 75 MG TAB PO SCH (09:00)
[2021-06-16] MEDS: BUMETANIDE INJ 0.25MG/ML 4ML VIAL IV SCH ×2 (09:00→22:08)
[2021-06-16] MEDS ORDERED: POTASSIUM CHLORIDE 20MEQ/100ML 100 ML IV ONE ×3 (11:00→15:00)
[2021-06-16] MEDS ORDERED: BUMETANIDE INJ 0.25MG/ML 4ML VIAL IV ONE (11:30)
[2021-06-16] MEDS ORDERED: METOLAZONE 5 MG TAB PO NR (11:30)
[2021-06-16] MEDS ORDERED: POTASSIUM CHLORIDE 10MEQ/100ML 300 ML IV ONE (11:30)
[2021-06-16] MEDS: ASPIRIN 81 MG ENTERIC COATED PO SCH (11:37)
[2021-06-16] MEDS: CEFEPIME 1 GM in SODIUM CHLORIDE 0.9% 50ML 50 ML IV SCH (15:04)
[2021-06-16] MEDS: ENOXAPARIN 30 MG/0.3 ML SYR SC SCH (18:27)
[2021-06-17] VITALS: BP 108/85
[2021-06-17 04:00] VITALS: BP 106/60
[2021-06-17 05:36] LABS: BASOPHILS % 0.1 % (0.0-1.0); HEMATOCRIT 34.9 % (34.2-44.1); HEMOGLOBIN 10.7 g/dL (12.0-16.0); LYMPHOCYTES # (AUTO) 0.2 (1.0-3.2); LYMPHOCYTES % 1.5 % (18.0-39.1); MEAN CORPUSCULAR HEMOGLOBIN 28.2 pg (28-32); MEAN CORPUSCULAR HGB CONC 30.7 g/dL (31-35); MEAN CORPUSCULAR VOLUME 92.1 fL (81-99); MONOCYTES # (AUTO) 0.8 (0.2-0.8); MONOCYTES % 4.7 % (4.4-11.3); NEUTROPHILS # (AUTO) 14.9 (2.1-6.9); NEUTROPHILS % 92.8 % (38.7-80.0); PLATELET COUNT 222 x10e3/uL (140-360); RED BLOOD COUNT 3.79 x10e6/uL (3.6-5.1); RED CELL DISTRIBUTION WIDTH 21.2 % (11.7-14.4)
[2021-06-17 05:58] LABS: ALBUMIN 2.2 g/dL (3.5-5.0); ALBUMIN/GLOBULIN RATIO 0.6 (0.8-2.0); CREATININE, SERUM 2.03 mg/dL (0.57-1.11); POTASSIUM 3.9 mmol/L (3.5-5.1)
[2021-06-17] MEDS: METRONIDAZOLE 500 MG TAB PO SCH ×4 (06:00→22:40)
[2021-06-17] MEDS: DEXTROSE 5% 1,000 ML IV SCH ×2 (06:07→15:29)
[2021-06-17 06:29] LABS: ANION GAP 19.9 mmol/L (8-16)
[2021-06-17 06:36] LABS: CALCIUM 6.8 mg/dL (8.4-10.2)
[2021-06-17 08:29] VITALS: BP 106/60
[2021-06-17] MEDS: METOPROLOL TARTRATE 25 MG TAB PO SCH ×2 (09:00→17:07)
[2021-06-17] MEDS: ASPIRIN 81 MG ENTERIC COATED PO SCH (09:32)
[2021-06-17] MEDS: CLOPIDOGREL BISULFATE 75 MG TAB PO SCH (09:32)
[2021-06-17] MEDS: BUMETANIDE INJ 0.25MG/ML 4ML VIAL IV SCH ×2 (09:32→22:40)
[2021-06-17] MEDS: CEFEPIME 1 GM in SODIUM CHLORIDE 0.9% 50ML 50 ML IV SCH ×2 (13:53→15:00)
[2021-06-17] MEDS: METOLAZONE 5 MG TAB PO SCH (17:07)
[2021-06-17] MEDS: ENOXAPARIN 30 MG/0.3 ML SYR SC SCH (17:07)
[2021-06-17 20:00] VITALS: BP 125/80
[2021-06-18] VITALS (8 sets, daily range): BP systolic 95–139; BP diastolic 68–79
[2021-06-18] MEDS: METRONIDAZOLE 500 MG TAB PO SCH ×3 (05:10→21:49)
[2021-06-18] MEDS: METOPROLOL TARTRATE INJ 1 MG/ML VIAL IV PRN (05:30)
[2021-06-18 08:45] LABS: BASOPHILS % 0.1 % (0.0-1.0); EOSINOPHILS % 0.1 % (0.0-6.0); HEMATOCRIT 34.7 % (34.2-44.1); HEMOGLOBIN 10.7 g/dL (12.0-16.0); LYMPHOCYTES # (AUTO) 0.3 (1.0-3.2); LYMPHOCYTES % 1.7 % (18.0-39.1); MEAN CORPUSCULAR HGB CONC 30.8 g/dL (31-35); MEAN CORPUSCULAR VOLUME 90.8 fL (81-99); MONOCYTES # (AUTO) 0.7 (0.2-0.8); NEUTROPHILS # (AUTO) 16.5 (2.1-6.9); NEUTROPHILS % 93.8 % (38.7-80.0); PLATELET COUNT 213 x10e3/uL (140-360); RED BLOOD COUNT 3.82 x10e6/uL (3.6-5.1)
[2021-06-18 08:49] LABS: ALBUMIN/GLOBULIN RATIO 0.6 (0.8-2.0); ANION GAP 16.5 mmol/L (8-16); CREATININE, SERUM 1.81 mg/dL (0.57-1.11)
[2021-06-18 09:06] LABS: CALCIUM 6.9 mg/dL (8.4-10.2); POTASSIUM 2.5 mmol/L (3.5-5.1)
[2021-06-18] MEDS: ASPIRIN 81 MG ENTERIC COATED PO SCH (09:25)
[2021-06-18] MEDS: BUMETANIDE INJ 0.25MG/ML 4ML VIAL IV SCH ×2 (09:25→21:49)
[2021-06-18] MEDS: METOPROLOL TARTRATE 25 MG TAB PO SCH ×2 (09:26→16:14)
[2021-06-18] MEDS: METOLAZONE 5 MG TAB PO SCH (09:26)
[2021-06-18] MEDS: CLOPIDOGREL BISULFATE 75 MG TAB PO SCH (09:26)
[2021-06-18 10:55] LABS: MAGNESIUM 1.6 MG/DL (1.3-2.1)
[2021-06-18] MEDS ORDERED: POTASSIUM CHLORIDE 20MEQ/100ML 100 ML IV ONE ×3 (11:00→15:00)
[2021-06-18] MEDS: DEXTROSE 5% 1,000 ML IV SCH (11:09)
[2021-06-18 11:37] LABS: PHOSPHORUS 4.2 MG/DL (2.3-4.7)
[2021-06-18] MEDS ORDERED: CALCIUM CHLORIDE 13.6 MEQ in SODIUM CHLORIDE 0.9% 100 ML 100 ML IV ONE (12:00)
[2021-06-18] MEDS ORDERED: MAGNESIUM SULFATE 2GM/50ML 50 ML IV ONE ×3 (12:45→21:45)
[2021-06-18] MEDS: ENOXAPARIN 30 MG/0.3 ML SYR SC SCH (16:01)
[2021-06-18] MEDS: CEFEPIME 1 GM in SODIUM CHLORIDE 0.9% 50ML 50 ML IV SCH (16:01)
[2021-06-19] VITALS (8 sets, daily range): BP systolic 113–129; BP diastolic 47–77
[2021-06-19] MEDS: METRONIDAZOLE 500 MG TAB PO SCH ×3 (05:05→22:00)
[2021-06-19] MEDS: DEXTROSE 5% 1,000 ML IV SCH (05:14)
[2021-06-19] MEDS: METOPROLOL TARTRATE 25 MG TAB PO SCH ×2 (11:11→18:06)
[2021-06-19] MEDS: ASPIRIN 81 MG ENTERIC COATED PO SCH (11:11)
[2021-06-19] MEDS: BUMETANIDE INJ 0.25MG/ML 4ML VIAL IV SCH ×2 (11:11→22:00)
[2021-06-19] MEDS: CLOPIDOGREL BISULFATE 75 MG TAB PO SCH (11:12)
[2021-06-19] MEDS: METOLAZONE 5 MG TAB PO SCH (11:12)
[2021-06-19 14:59] LABS: BASOPHILS % 0.1 % (0.0-1.0); EOSINOPHILS # (AUTO) 0.1 (0.0-0.4); EOSINOPHILS % 0.8 % (0.0-6.0); HEMATOCRIT 37.8 % (34.2-44.1); HEMOGLOBIN 12.1 g/dL (12.0-16.0); LYMPHOCYTES # (AUTO) 0.3 (1.0-3.2); LYMPHOCYTES % 1.8 % (18.0-39.1); MEAN CORPUSCULAR HEMOGLOBIN 28.1 pg (28-32); MEAN CORPUSCULAR VOLUME 87.7 fL (81-99); MONOCYTES # (AUTO) 0.9 (0.2-0.8); MONOCYTES % 5.1 % (4.4-11.3); NEUTROPHILS # (AUTO) 15.4 (2.1-6.9); NEUTROPHILS % 91.5 % (38.7-80.0); PLATELET COUNT 232 x10e3/uL (140-360); RED BLOOD COUNT 4.31 x10e6/uL (3.6-5.1)
[2021-06-19] MEDS: CEFEPIME 1 GM in SODIUM CHLORIDE 0.9% 50ML 50 ML IV SCH (15:08)
[2021-06-19 15:14] LABS: ANION GAP 18.4 mmol/L (8-16); CALCIUM 7.3 mg/dL (8.4-10.2); CREATININE, SERUM 1.6 mg/dL (0.57-1.11)
[2021-06-19 15:16] LABS: POTASSIUM 2.4 mmol/L (3.5-5.1)
[2021-06-19] MEDS ORDERED: SODIUM CHLORIDE 0.9% IV ONE (16:00)
[2021-06-19] MEDS ORDERED: POTASSIUM CHLORIDE IV ONE (16:00)
[2021-06-20] VITALS (8 sets, daily range): BP systolic 100–125; BP diastolic 45–90
[2021-06-20] MEDS: DEXTROSE 5% 1,000 ML IV SCH ×2 (04:00→22:23)
[2021-06-20] MEDS: METRONIDAZOLE 500 MG TAB PO SCH ×3 (06:11→21:41)
[2021-06-20 07:26] LABS: ANION GAP 18.4 mmol/L (8-16); CALCIUM 7.3 mg/dL (8.4-10.2); CREATININE, SERUM 1.41 mg/dL (0.57-1.11); POTASSIUM 3.4 mmol/L (3.5-5.1)
[2021-06-20] MEDS: METOPROLOL TARTRATE 25 MG TAB PO SCH ×2 (09:00→17:00)
[2021-06-20] MEDS: CLOPIDOGREL BISULFATE 75 MG TAB PO SCH (09:00)
[2021-06-20] MEDS: BUMETANIDE INJ 0.25MG/ML 4ML VIAL IV SCH ×2 (09:00→21:41)
[2021-06-20] MEDS: ASPIRIN 81 MG ENTERIC COATED PO SCH (09:00)
[2021-06-20] MEDS: METOLAZONE 5 MG TAB PO SCH (09:00)
[2021-06-20] MEDS ORDERED: POTASSIUM CHLORIDE 20 MEQ TAB CR PO NR (11:00)
[2021-06-20] MEDS ORDERED: DIGOXIN INJ 0.25 MG/ML 2 ML AMP IV NR (12:30)
[2021-06-20] MEDS: CEFEPIME 1 GM in SODIUM CHLORIDE 0.9% 50ML 50 ML IV SCH (15:38)
[2021-06-20] MEDS: ENOXAPARIN 30 MG/0.3 ML SYR SC SCH (17:00)
[2021-06-21] VITALS (7 sets, daily range): BP systolic 100–150; BP diastolic 57–88
[2021-06-21] MEDS: METRONIDAZOLE 500 MG TAB PO SCH ×3 (05:34→22:36)
[2021-06-21 06:24] LABS: BASOPHILS % 0.1 % (0.0-1.0); EOSINOPHILS % 0.1 % (0.0-6.0); HEMOGLOBIN 11.5 g/dL (12.0-16.0); LYMPHOCYTES # (AUTO) 0.4 (1.0-3.2); LYMPHOCYTES % 2.5 % (18.0-39.1); MEAN CORPUSCULAR HEMOGLOBIN 28.2 pg (28-32); MEAN CORPUSCULAR HGB CONC 31.1 g/dL (31-35); MEAN CORPUSCULAR VOLUME 90.7 fL (81-99); MONOCYTES # (AUTO) 0.8 (0.2-0.8); MONOCYTES % 5.3 % (4.4-11.3); NEUTROPHILS # (AUTO) 13.8 (2.1-6.9); NEUTROPHILS % 91.5 % (38.7-80.0); PLATELET COUNT 237 x10e3/uL (140-360); RED BLOOD COUNT 4.08 x10e6/uL (3.6-5.1); RED CELL DISTRIBUTION WIDTH 21.3 % (11.7-14.4)
[2021-06-21 06:59] LABS: ALBUMIN 2.2 g/dL (3.5-5.0); ALBUMIN/GLOBULIN RATIO 0.6 (0.8-2.0); ANION GAP 16.1 mmol/L (8-16); CALCIUM 7.7 mg/dL (8.4-10.2); CREATININE, SERUM 1.43 mg/dL (0.57-1.11)
[2021-06-21 07:05] LABS: POTASSIUM 2.1 mmol/L (3.5-5.1)
[2021-06-21] MEDS: CLOPIDOGREL BISULFATE 75 MG TAB PO SCH (09:00)
[2021-06-21] MEDS: ASPIRIN 81 MG ENTERIC COATED PO SCH (09:00)
[2021-06-21] MEDS: METOLAZONE 5 MG TAB PO SCH (09:00)
[2021-06-21] MEDS: METOPROLOL TARTRATE 25 MG TAB PO SCH ×2 (09:00→17:04)
[2021-06-21] MEDS ORDERED: POTASSIUM CHLORIDE 20 MEQ TAB CR PO NR (09:30)
[2021-06-21] MEDS ORDERED: ACETAZOLAMIDE SODIUM 500 MG/VIAL IV NR (10:00)
[2021-06-21] MEDS: POTASSIUM CHLORIDE 20MEQ/100ML 100 ML IV SCH ×3 (10:00→14:00)
[2021-06-21] MEDS: Morphine 4mg Syringe 4 MG/ML INJ IV PRN (10:25)
[2021-06-21] MEDS: CEFEPIME 1 GM in SODIUM CHLORIDE 0.9% 50ML 50 ML IV SCH (15:00)
[2021-06-21] MEDS: ENOXAPARIN 30 MG/0.3 ML SYR SC SCH (17:04)
[2021-06-21] MEDS ORDERED: Morphine 4mg Syringe 4 MG/ML INJ IV PRN (22:00)
[2021-06-22] VITALS (7 sets, daily range): BP systolic 99–130; BP diastolic 61–74
[2021-06-22 00:58] LABS: ANION GAP 12.5 mmol/L (8-16); CALCIUM 7.3 mg/dL (8.4-10.2); CREATININE, SERUM 1.29 mg/dL (0.57-1.11)
[2021-06-22 01:20] LABS: POTASSIUM 2.5 mmol/L (3.5-5.1)
[2021-06-22] MEDS ORDERED: POTASSIUM CHLORIDE 20 MEQ TAB CR PO STA (01:37)
[2021-06-22] MEDS ORDERED: POTASSIUM CHLORIDE 20MEQ/100ML 100 ML IV SCH ×2 (02:00)
[2021-06-22] MEDS: POTASSIUM CHLORIDE 10MEQ/100ML 100 ML INJ SCH ×4 (02:19→06:50)
[2021-06-22] MEDS: METRONIDAZOLE 500 MG TAB PO SCH ×2 (05:38→15:57)
[2021-06-22] MEDS: ASPIRIN 81 MG ENTERIC COATED PO SCH (09:09)
[2021-06-22] MEDS: METOLAZONE 5 MG TAB PO SCH (09:10)
[2021-06-22] MEDS: CLOPIDOGREL BISULFATE 75 MG TAB PO SCH (09:10)
[2021-06-22] MEDS: METOPROLOL TARTRATE 25 MG TAB PO SCH ×2 (09:10→15:58)
[2021-06-22] MEDS: BUMETANIDE INJ 0.25MG/ML 4ML VIAL IV SCH ×2 (10:06→10:15)
[2021-06-22] MEDS ORDERED: DIGOXIN INJ 0.25 MG/ML 2 ML AMP IV ONE (10:30)
[2021-06-22] MEDS ORDERED: MAGNESIUM SULFATE 2GM/50ML 50 ML IV ONE (11:30)
[2021-06-22] MEDS ORDERED: SODIUM CHLORIDE 0.9% 250ML 250 ML ONE (11:34)
[2021-06-22] MEDS: Morphine 4mg Syringe 4 MG/ML INJ IV PRN ×2 (11:40→20:45)
[2021-06-22] MEDS: CEFEPIME 1 GM in SODIUM CHLORIDE 0.9% 50ML 50 ML IV SCH (15:57)
[2021-06-22] MEDS: ENOXAPARIN 30 MG/0.3 ML SYR SC SCH (15:57)
[2021-06-22] MEDS: ONDANSETRON HCL INJ 2MG/ML 2ML 2 MG/ML VIAL IV PRN (20:45)
[2021-06-23 00:10] VITALS: BP 108/70
[2021-06-23 04:20] VITALS: BP 117/58
[2021-06-23 07:56] VITALS: BP 132/73
[2021-06-23 08:10] VITALS: BP 132/73
[2021-06-23] MEDS: CLOPIDOGREL BISULFATE 75 MG TAB PO SCH (08:39)
[2021-06-23] MEDS: ASPIRIN 81 MG ENTERIC COATED PO SCH (08:39)
[2021-06-23] MEDS: METOPROLOL TARTRATE 25 MG TAB PO SCH ×2 (08:39→15:30)
[2021-06-23] MEDS ORDERED: BUMETANIDE 1 MG TAB PO SCH (09:00)
[2021-06-23 11:30] VITALS: BP 95/62
[2021-06-23] MEDS ORDERED: BUMETANIDE1 MG PO (12:13)
[2021-06-23] MEDS ORDERED: PLAVIX75 MG PO (12:13)
[2021-06-23] MEDS ORDERED: LOPRESSOR25 MG PO (12:13)
[2021-06-23] MEDS: CEFEPIME 1 GM in SODIUM CHLORIDE 0.9% 50ML 50 ML IV SCH (15:10)
[2021-06-23] MEDS: Morphine 4mg Syringe 4 MG/ML INJ IV PRN (15:44)
[2021-06-23 15:45] VITALS: BP 127/74
== END 2021-06-23 16:16 | DRG 853 ==
LOC: ER 20:09 → ERHOLD 22:35 → IMCU 06-04 19:57 → ICU 06-05 14:09 → MED/SURG3 06-06 17:06 → ICU 06-07 07:39 → MED/SURG2 06-10 08:24
PROVIDERS: ADMIT Internal Medicine; ATTEND Internal Medicine
PROC: 0DTN0ZZ Resection of Sigmoid Colon, Open Approach (ICD-10-PCS; 2021-06-05)
PROC: 0D1M074 Bypass Descending Colon to Cutaneous with Autologous Tissue Substitute, Open Approach (ICD-10-PCS; 2021-06-05)
PROC: 0WPJ0JZ Removal of Synthetic Substitute from Pelvic Cavity, Open Approach (ICD-10-PCS; 2021-06-05)
PROC: 0J980ZZ Drainage of Abdomen Subcutaneous Tissue and Fascia, Open Approach (ICD-10-PCS; 2021-06-05)
PROC: 3E043XZ Introduction of Vasopressor into Central Vein, Percutaneous Approach (ICD-10-PCS; 2021-06-05)
PROC: 027135Z Dilation of Coronary Artery, Two Arteries with Two Drug-eluting Intraluminal Devices, Percutaneous Approach (ICD-10-PCS; principal; 2021-06-07)
PROC: 5A02210 Assistance with Cardiac Output using Balloon Pump, Continuous (ICD-10-PCS; 2021-06-07)
PROC: 4A023N7 Measurement of Cardiac Sampling and Pressure, Left Heart, Percutaneous Approach (ICD-10-PCS; 2021-06-07)
PROC: B2121ZZ Fluoroscopy of Single Coronary Artery Bypass Graft using Low Osmolar Contrast (ICD-10-PCS; 2021-06-07)
PROC: B2111ZZ Fluoroscopy of Multiple Coronary Arteries using Low Osmolar Contrast (ICD-10-PCS; 2021-06-07)
PROC: B2151ZZ Fluoroscopy of Left Heart using Low Osmolar Contrast (ICD-10-PCS; 2021-06-07)
PROC: 02HV33Z Insertion of Infusion Device into Superior Vena Cava, Percutaneous Approach (ICD-10-PCS; 2021-06-17)
DX: A41.9 Sepsis, unspecified organism (principal); N17.0 Acute kidney failure with tubular necrosis; K72.00 Acute and subacute hepatic failure without coma; R57.0 Cardiogenic shock; I21.19 ST elevation (STEMI) myocardial infarction involving other coronary artery of inferior wall; K57.20 Diverticulitis of large intestine with perforation and abscess without bleeding; E87.2 Acidosis; D68.9 Coagulation defect, unspecified; E87.0 Hyperosmolality and hypernatremia; T83.718A Erosion of other implanted mesh to organ or tissue, initial encounter; I48.20 Chronic atrial fibrillation, unspecified; Z79.01 Long term (current) use of anticoagulants; E78.00 Pure hypercholesterolemia, unspecified; Z96.652 Presence of left artificial knee joint; D50.0 Iron deficiency anemia secondary to blood loss (chronic); E87.5 Hyperkalemia; Z66 Do not resuscitate; I25.10 Atherosclerotic heart disease of native coronary artery without angina pectoris; I12.9 Hypertensive chronic kidney disease with stage 1 through stage 4 chronic kidney disease, or unspecified chronic kidney disease; N18.32 Chronic kidney disease, stage 3b; Z20.822 Contact with and (suspected) exposure to COVID-19
CPT/HCPCS: 36415; 36569; 71045; 74177; 80048; 80053; 80061; 81001; 82550; 82553; 82948; 83605; 83735; 83880; 84100; 84484; 84550; 85025; 85610; 85730; 87071; 87075; 87186; 87205; 88305; 88307; 92928; 92929; 93005; 93306; 93454; 94799; 96360; 96361; 97139; 99152; 99153; 99251; 99284; C1725; C1769; C1876; C1887; C9600; C9601; J0583; J0692; J1100; J1160; J1170; J1644; J1650; J1940; J2001; J2060; J2250; J2270; J2370; J2405; J2543; J2550; J2710; J3010; J3430; J3475; J3480; J3486; J7030; J7050; J7070; J7120; J7121; P9047; Q9967; U0002